=== PATIENT | female | born 1965 | race Caucasian/White ===

== ENCOUNTER 2016-09-19 10:18 | Emergency (ER) | payer SELFPAY ==
[2016-09-19] MEDS ORDERED: OXYCODONE-ACETAMINOPHEN 5-325 MG TABLET PO ONE (10:29)
[2016-09-19] MEDS ORDERED: ONDANSETRON 4 MG TAB.RAPDIS PO ONE (10:29)
--- NOTE | 2016-09-19 10:29 | ER Document Report ---
ED Medical Screen (RME) - General Stated Complaint: EAR PAIN Notes: 50 yo female c/o left ear pain and fatigue. Pt was diagnosed with mono 1 1/2 weeks ago. Syncopal episode this am, hit right side of head. + pain to head. + nausea. intermittant fever. TRAVEL OUTSIDE OF THE [place] IN LAST 30 DAYS: No - Related Data Allergies/Adverse Reactions: iodine [Iodine] Allergy (Severe, Verified 02/07/15 20:23) Difficulty breathing codeine [Codeine] Adverse Reaction (Mild, Verified 02/07/15 20:23) Nausea Past Medical History - Past Medical History Cardiac Medical History: Denies: Hx Coronary Artery Disease, Hx Heart Attack, Hx Hypertension Pulmonary Medical History: Denies: Hx Asthma, Hx Bronchitis, Hx COPD, Hx Pneumonia Neurological Medical History: Reports: Hx Migraine. Denies: Hx Cerebrovascular Accident, Hx Seizures GI Medical History: Reports: Hx Crohn's Disease - no meds, Hx Ulcer. Denies: Hx Hepatitis, Hx Hiatal Hernia Musculoskeltal Medical History: Reports Hx Arthritis Psychiatric Medical History: Reports: Hx Anxiety - xanax prn sleep Infectious Medical History: Denies: Hx Hepatitis Past Surgical History: Reports: Hx Appendectomy, Hx Breast Surgery - Lumpectomy , Hx Cholecystectomy, Hx Hysterectomy, Hx Tonsillectomy. Denies: Hx Mastectomy - RT BX DUCT REMOVED, Hx Open Heart Surgery, Hx Pacemaker - Immunizations Immunizations up to date: Yes Hx Diphtheria, Pertussis, Tetanus Vaccination: Yes Physical Exam - Vital signs Vitals: Temp Pulse Resp BP Pulse Ox 98.4 F 93 16 137/86 H 99 09/19/16 10:09/19/16 10:09/19/16 10:09/19/16 10:09/19/16 10:23 Course - Vital Signs Vital signs: Temp Pulse Resp BP Pulse Ox 98.4 F 93 16 137/86 H 99 09/19/16 10:09/19/16 10:09/19/16 10:23 09/19/16 10:23 09/19/16 10:23
[2016-09-19 11:17] LABS: ABSOLUTE BASOPHILS # (AUTO) 0.1 10^3/uL (0.0-0.2); ABSOLUTE EOSINOPHILS # (AUTO) 0.1 10^3/uL (0.0-0.6); ABSOLUTE LYMPHOCYTES (AUTO) 2.5 10^3/uL (0.5-4.7); ABSOLUTE MONOCYTES (AUTO) 0.5 10^3/uL (0.1-1.4); ABSOLUTE NEUT (AUTO) 6.3 10^3/uL (1.7-8.2); BASOPHILS % (AUTO) 0.6 % (0-2); EOSINOPHILS % (AUTO) 1.4 % (0-6); HEMATOCRIT 35.3 % (36.0-47.0); HEMOGLOBIN 12.3 g/dL (12.0-15.5); HGB HCT DIFFERENCE 1.6; LYMPHOCYTES % (AUTO) 26.4 % (13-45); MEAN CORPUSCULAR HEMOGLOBIN 34.6 pg (27.0-33.4); MEAN CORPUSCULAR HGB CONC 34.8 g/dL (32.0-36.0); MEAN CORPUSCULAR VOLUME 99 fl (80-97); MONOCYTES % (AUTO) 5.7 % (3-13); RED BLOOD COUNT 3.56 10^6/uL (3.72-5.28); RED CELL DISTRIBUTION WIDTH 13.8 % (11.5-14.0); SEGMENTED NEUTROPHILS % (AUTO) 65.9 % (42-78); WHITE BLOOD COUNT 9.6 10^3/uL (4.0-10.5)
[2016-09-19 11:37] LABS: APPEARANCE,URINE CLEAR; BILIRUBIN,URINE NEGATIVE (NEGATIVE); GLUCOSE, URINE NEGATIVE (NEGATIVE); KETONES,URINE NEGATIVE (NEGATIVE); LEUKOCYTE ESTERASE,URINE SMALL (NEGATIVE); NITRITE,URINE NEGATIVE (NEGATIVE); PROTEIN,URINE NEGATIVE (NEGATIVE); URINE SPECIFIC GRAVITY 1.015; UROBILINOGEN,URINE NEGATIVE mg/dL (<2.0)
[2016-09-19 11:41] LABS: ALANINE AMINOTRANSFERASE 29 U/L (9-52); ALBUMIN 4.5 g/dL (3.5-5.0); ALCOHOL < 10 mg/dL (NONE DETECTED); ALKALINE PHOSPHATASE 107 U/L (38-126); ANION GAP 12 (5-19); ASPARTATE AMINO TRANSFERASE 27 U/L (14-36); BILIRUBIN,TOTAL 0.4 mg/dL (0.2-1.3); BLOOD UREA NITROGEN 23 mg/dL (7-20); CALCIUM 9.9 mg/dL (8.4-10.2); CARBON DIOXIDE 26 mmol/L (22-30); CHLORIDE 105 mmol/L (98-107); CREATININE RESULT 0.88 mg/dL (0.52-1.25); GLUCOSE 100 mg/dL (75-110); POTASSIUM 4.5 mmol/L (3.6-5.0); SODIUM 142.9 mmol/L (137-145); TOTAL PROTEIN 7.4 g/dL (6.3-8.2)
[2016-09-19 11:49] LABS: URINE BARBITURATES SCREEN NEGATIVE; URINE METHADONE SCREEN NEGATIVE; URINE PHENCYCLIDINE SCREEN NEGATIVE
[2016-09-19 11:58] LABS: CREATINE KINASE MB 0.36 ng/mL (<4.55)
[2016-09-19 12:00] LABS: TROPONIN I < 0.012 ng/mL
--- NOTE | 2016-09-19 12:00 | ER Document Report ---
ED General - General Chief Complaint: Closed Head Injury Stated Complaint: EAR PAIN Notes: Patient says that she's been ill for the past week and a half or more. She's been very tired with no energy. Has had headache. Also sore throat. Was seen by her primary care provider and diagnosed as having mono. During this time, she has had bilateral ear pain, and about a week ago had some "stuff" coming out of her left ear, although it's not doing so at this time. Today, about 10 AM, patient was positioning herself on the toilet and the next thing she noticed was that she was laying on the floor and had a bruise on her right forehead. She has never had this happen before. She says that her equilibrium has been off for the past week. She's had about 3 episodes of vomiting during the past week or 2. Denies any abdominal pain, however. Denies any chest pains. Does not have any UTI symptoms. Has noted pain in the back of her neck since her fall and hitting her head this morning. Patient says she has not eaten anything but crackers for the past 2 days. Also felt that she's had a fever, going up to his high as 101.2 but back down to normal at other times. No one witnessed the patient's fall. PMH: Anxiety and takes Xanax as needed. History of appendectomy, hysterectomy, cholecystectomy, but no history of any heart disease. Not diabetic and not hypertensive. TRAVEL OUTSIDE OF THE [place] IN LAST 30 DAYS: No - Related Data Allergies/Adverse Reactions: iodine [Iodine] Allergy (Severe, Verified 09/19/16 10:29) Difficulty breathing codeine [Codeine] Adverse Reaction (Mild, Verified 09/19/16 10:29) Nausea Past Medical History - Social History Smoking Status: Current Every Day Smoker Cigarette use (# per day): Yes Family History: None, Reviewed & Not Pertinent Patient has suicidal ideation: No Patient has homicidal ideation: No - Past Medical History Cardiac Medical History: Denies: Hx Coronary Artery Disease, Hx Heart Attack Neurological Medical History: Reports: Hx Migraine. Denies: Hx Cerebrovascular Accident, Hx Seizures Endocrine Medical History: Denies: Hx Diabetes Mellitus Type 1, Hx Diabetes Mellitus Type 2 Renal/ Medical History: Denies: Hx Kidney Stones GI Medical History: Reports: Hx Crohn's Disease - no meds, Hx Ulcer Musculoskeltal Medical History: Reports Hx Arthritis Psychiatric Medical History: Reports: Hx Anxiety - xanax prn sleep Past Surgical History: Reports: Hx Appendectomy, Hx Breast Surgery - Lumpectomy , Hx Cholecystectomy, Hx Hysterectomy, Hx TonsillectomyComment Only: Hx Mastectomy - RT BX DUCT REMOVED - Immunizations Immunizations up to date: Yes Hx Diphtheria, Pertussis, Tetanus Vaccination: Yes Hx Pneumococcal Vaccination: 06/09/11 Review of Systems - Review of Systems Notes: REVIEW OF SYSTEMS: CONSTITUTIONAL : Has had intermittent fever. EENT: Denies eye, nose or mouth pain or other symptoms. See history of present illness regarding sore throat and ear pain. CARDIOVASCULAR: Denies chest pain. RESPIRATORY: Denies cough, chest congestion, or shortness of breath. GASTROINTESTINAL: Denies abdominal pain and no diarrhea, but has had nausea and has vomited about 3 times.. GENITOURINARY: Denies difficulty or painful urinating, urinary frequency, blood in urine. MUSCULOSKELETAL: Denies back pain. Has neck pain since her fall this morning. Denies joint pain or swelling. SKIN: Denies rash or skin lesions. Says her skin feels like she is been injured with total body pain, but no visible bruises. NEUROLOGICAL: See history of present illness. Denies altered mental status. Has generalized headache. Denies sensory loss or motor deficits. PSYCHIATRIC: Acknowledges history of anxiety and stress. ALL OTHER SYSTEMS REVIEWED AND NEGATIVE. Physical Exam - Vital signs Vitals: Temp Pulse Resp BP Pulse Ox 98.4 F 93 16 137/86 H 99 09/19/16 10:23 09/19/16 10:23 09/19/16 10:23 09/19/16 10:23 09/19/16 10:23 Interpretation: Normal - Notes Notes: PHYSICAL EXAMINATION: GENERAL: Well-appearing, in no acute distress. Ambulatory without difficulty. Vital signs are all normal. HEAD: Some very minor bruising and abrasion to the right upper forehead and right anterior scalp region, all of these areas tender to the touch. No scalp hematoma formation. The abrasions actually almost look as if they could be factitial, very shallow linear, from some sharp object, like a razor blade. No one witnessed the patient's fall. EYES: Pupils equal round and reactive to light, extraocular movements intact. ENT: oropharynx clear without exudates. Oral exam does not reveal any evidence of infection. Moist mucous membranes. Both TMs are visualized and are normal. There is no discharge or drainage from either ear. NECK: Normal range of motion, supple. Mild generalized tenderness around the neck, but no specific posterior midline tenderness. LUNGS: Breath sounds clear and equal bilaterally. No rib tenderness. HEART: Regular rate and rhythm without murmurs. ABDOMEN: Soft, nontender. No guarding or rebound. No tenderness in the left upper quadrant. BACK: No tenderness throughout entire back. EXTREMITIES: Normal range of motion without pain. NEUROLOGICAL: Normal speech, normal gait. Normal sensory, motor, and reflex exams. Awake, alert, and oriented x3. Cranial nerves normal. PSYCH: Normal mood, normal affect. SKIN: Warm, dry, no rashes. Course - Re-evaluation Re-evalutation: 09/19/16 13:43 Patient continued to complain of pain and saying that we hadn't given her anything sufficient, although she was given 2 Percocets in triage just 3 hours ago. I told the patient that she would need to get her pain medication prescriptions from her primary care provider, Dr. Alanis, but she said that she does not get pain medicines from him or anyone. Specifically, patient said that she had not gotten any pain medications from anyone in the past year and a half. I obtained the patient's prescription record for controlled substances from the [place] [employer] and it shows that she has gotten several prescriptions for 120 alprazolam 1 mg over the past few months. She's also received prescriptions for 60 oxycodone 10 mg on 08/13/2016. And, hydrocodone suspension 120 mL on 08/08/2016, and 40 oxycodone 10 mg on 07/19/2016, as well as other medications during several months prior to these. When I shared this information with the patient, she acknowledges that she had gotten these pain medicines, but said she misunderstood my question when she answered. I advised her that I would not be giving her any pain medications and she said Dr. Alanis wouldn't give her any either. I offered the patient a prescription for Ultram, but she declined, saying it never helps. Patient was given verbal discharge instructions and then I went to write up her discharge instructions. The nurse Dahiana informed me the patient had left the emergency department before receiving her written instructions. Dahiana had been witness to my entire conversation with the patient. - Vital Signs Vital signs: Temp Pulse Resp BP Pulse Ox 98.8 F 88 20 132/71 H 96 09/19/16 13:38 09/19/16 13:38 09/19/16 13:38 09/19/16 13:38 09/19/16 13:38 - Laboratory Result Diagrams: 09/19/16 10:58 09/19/16 10:58 Laboratory results interpreted by me: 09/19/16 09/19/16 09/19/16 10:58 10:58 10:58 RBC 3.56 L Hct 35.3 L MCV 99 H MCH 34.6 H BUN 23 H Ur Leukocyte Esterase SMALL H 09/19/16 13:42 Labs reviewed and BUN of 23 noted. No other significant abnormality present. - Diagnostic Test Radiology reviewed: Image reviewed, Reports reviewed Radiology results interpreted by me: 09/19/16 13:41 CT scan of the patient's brain and C-spine were both normal, without any acute abnormalities. - EKG Interpretation by Me EKG shows normal: Sinus rhythm - At 84 Rate: Normal Rhythm: NSR Discharge - Discharge Clinical Impression: Syncope Qualifiers: Syncope type: vasovagal syncope Qualified Code(s): R55 - Syncope and collapse Contusion of head Qualifiers: Encounter type: initial encounter Contusion of head detail: other part of head Qualified Code(s): S00.83XA - Contusion of other part of head, initial encounter Condition: Stable Disposition: HOME, SELF-CARE Additional Instructions: SYNCOPAL EPISODE: Syncope (fainting or near-fainting) can occur from many different health problems. Or it can be a simple fainting spell requiring no treatment. It is safe for you to go home, but further evaluation will likely be necessary. Your work-up may include tests for internal bleeding, heart disease, medication problems, or near-strokes. Tests are not always required, however, depending on the nature of your problem. The warning signs of an impending faint include: dizziness, lightheadedness , nausea, hot flashes, tingling, and weakness. If this happens, lay down and put your feet up, then wait until all of these symptoms have passed before standing up again. If these episodes become recurrent, or if you develop chest pain, heart palpitations, mental confusion, blurred vision, or headache, then you should call the physician, or go to the emergency room. NORMAL EXAM AND WORKUP: At this time, your examination and workup show no significant abnormality except for some abrasion and bruising of your right forehead. No other significant abnormal physical findings were noted. All laboratory, EKG, and imaging (x-ray, CT scans, ultrasound) studies that were ordered show no significant abnormality. Although your examination and all studies that were ordered showed no significant abnormal finding, there are no examinations and no studies that are 100% accurate. There is always the possibility that some abnormality could exist and not be detected with physical examination or within the limits and capabilities of laboratory and other studies. You should return or follow up as you were instructed on your visit today for further evaluation if your symptoms do not resolve. USE OF ACETAMINOPHEN (Tylenol): Acetaminophen may be taken for pain relief or fever control. It's much safer than aspirin, offering a wider range of "safe" dosages. It is safe during . Some brand names are Tylenol, Panadol, Datril, Anacin 3, Tempra, and Liquiprin. Acetaminophen can be repeated every four hours. The following are maximum recommended dosages: WEIGHT Dose Drops Elixir Chewable( 80mg) (LBS.) drprs=droppers tsp=teaspoon >89 pounds or adults 650 mg to 900 mg Acetaminophen can be repeated every four hours. Maximum dose not to exceed 4000 mg a day. These maximum recommended dosages are slightly higher than the dosages written on the product container, but these dosages are very safe and below the toxic dosage for acetaminophen. Ibuprofen Ibuprofen is an excellent, safe drug for pain control. In addition, it has potent antiinflammatory effects which are beneficial, especially in the treatment of injuries, arthritis, or tendonitis. It's best to take ibuprofen with food. Persons with ulcer disease or allergy to aspirin should notify their physician of this before taking ibuprofen. Take the medication exactly as prescribed. Don't take additional doses unless instructed to do so by your doctor. If you develop wheezing, shortness of breath, hives, faintness, stomach pain, vomiting, or dark black stools, return for re-evaluation at once. FOLLOW-UP CARE: If you have been referred to a physician for follow-up care, call the physician s office for an appointment as you were instructed or within the next two days. If you experience worsening or a significant change in your symptoms, notify the physician immediately or return to the Emergency Department at any time for re-evaluation. Follow-up with Dr. Alanis, your primary care provider, for other pain medications. Referrals: JARROD ALANIS MD [Primary Care Provider] - Follow up as needed
--- NOTE | 2016-09-19 13:37 | EKG REPORT ---
SEVERITY:- BORDERLINE ECG - SINUS RHYTHM SHORT TX INTERVAL, ACCELERATED AV CONDUCTION : Confirmed by: Cathy Barreto MD 19-Sep-2016 13:37:27
[2016-09-19 13:40] VITALS: BP 132/71
== END 2016-09-19 13:40 | disposition home or self-care (01) ==
LOC: ER 10:18
DX: S00.83XA Contusion of other part of head, initial encounter (principal); S00.03XA Contusion of scalp, initial encounter; M54.2 Cervicalgia; W18.11XA Fall from or off toilet without subsequent striking against object, initial encounter; R55 Syncope and collapse; B27.90 Infectious mononucleosis, unspecified without complication; R51 Headache; J02.9 Acute pharyngitis, unspecified; H92.03 Otalgia, bilateral; R11.10 Vomiting, unspecified; F41.9 Anxiety disorder, unspecified; Z88.3 Allergy status to other anti-infective agents; F17.210 Nicotine dependence, cigarettes, uncomplicated
CPT/HCPCS: 93005; 99284; 36415; 82553; 80307 ×2; 85025; 86308; 80053; 81001; 84484; 70450; 72125; 93010; S0119

== ENCOUNTER → 2016-10-09 | Outpatient (CLI) | payer SELFPAY ==
[2016-10-09 11:37] LABS: ABSOLUTE BASOPHILS # (AUTO) 0.2 10^3/uL (0.0-0.2); ABSOLUTE EOSINOPHILS # (AUTO) 0.3 10^3/uL (0.0-0.6); ABSOLUTE LYMPHOCYTES (AUTO) 3.1 10^3/uL (0.5-4.7); ABSOLUTE MONOCYTES (AUTO) 0.9 10^3/uL (0.1-1.4); ABSOLUTE NEUT (AUTO) 12.9 10^3/uL (1.7-8.2); BASOPHILS % (AUTO) 1.1 % (0-2); EOSINOPHILS % (AUTO) 1.7 % (0-6); HEMATOCRIT 39.9 % (36.0-47.0); HEMOGLOBIN 13.7 g/dL (12.0-15.5); HGB HCT DIFFERENCE 1.2; LYMPHOCYTES % (AUTO) 17.9 % (13-45); MEAN CORPUSCULAR HEMOGLOBIN 34.8 pg (27.0-33.4); MEAN CORPUSCULAR HGB CONC 34.2 g/dL (32.0-36.0); MEAN CORPUSCULAR VOLUME 102 fl (80-97); MONOCYTES % (AUTO) 4.9 % (3-13); RED BLOOD COUNT 3.93 10^6/uL (3.72-5.28); RED CELL DISTRIBUTION WIDTH 13.4 % (11.5-14.0); SEGMENTED NEUTROPHILS % (AUTO) 74.4 % (42-78); WHITE BLOOD COUNT 17.4 10^3/uL (4.0-10.5)
[2016-10-09 12:11] LABS: ALANINE AMINOTRANSFERASE 32 U/L (9-52); ALBUMIN 4.8 g/dL (3.5-5.0); ALKALINE PHOSPHATASE 119 U/L (38-126); ANION GAP 13 (5-19); ASPARTATE AMINO TRANSFERASE 20 U/L (14-36); BILIRUBIN,TOTAL 0.5 mg/dL (0.2-1.3); BLOOD UREA NITROGEN 21 mg/dL (7-20); CALCIUM 10.4 mg/dL (8.4-10.2); CARBON DIOXIDE 29 mmol/L (22-30); CHLORIDE 102 mmol/L (98-107); CREATININE RESULT 1.01 mg/dL (0.52-1.25); GLUCOSE 95 mg/dL (75-110); POTASSIUM 5.7 mmol/L (3.6-5.0); SODIUM 144.3 mmol/L (137-145); TOTAL PROTEIN 8.8 g/dL (6.3-8.2)
== END ==
LOC: LAB 10:55
PROVIDERS: ATTEND Obstetrics & Gynecology
DX: R10.12 Left upper quadrant pain (principal)
CPT/HCPCS: 36415; 80053; 85025

== ENCOUNTER → 2016-10-16 | Outpatient (CLI) | payer SELFPAY | LOC: RAD 08:07 | PROVIDERS: ATTEND Obstetrics & Gynecology | DX: D72.829 Elevated white blood cell count, unspecified (principal); R10.12 Left upper quadrant pain | CPT/HCPCS: 71020; 74176 ==

== ENCOUNTER → 2016-10-22 | Outpatient (CLI) | payer SELFPAY | LOC: WI 09:53 | PROVIDERS: ATTEND Obstetrics & Gynecology | DX: Z12.31 Encounter for screening mammogram for malignant neoplasm of breast (principal) | CPT/HCPCS: 77067; G0202 ==

== ENCOUNTER → 2016-10-22 | Outpatient (CLI) | payer SELFPAY ==
[2016-10-22 10:32] LABS: ABSOLUTE BASOPHILS # (AUTO) 0.1 10^3/uL (0.0-0.2); ABSOLUTE EOSINOPHILS # (AUTO) 0.4 10^3/uL (0.0-0.6); ABSOLUTE LYMPHOCYTES (AUTO) 3.2 10^3/uL (0.5-4.7); ABSOLUTE MONOCYTES (AUTO) 0.6 10^3/uL (0.1-1.4); ABSOLUTE NEUT (AUTO) 4.9 10^3/uL (1.7-8.2); BASOPHILS % (AUTO) 0.8 % (0-2); EOSINOPHILS % (AUTO) 4.3 % (0-6); HEMATOCRIT 33.8 % (36.0-47.0); HEMOGLOBIN 11.6 g/dL (12.0-15.5); MEAN CORPUSCULAR HEMOGLOBIN 34.7 pg (27.0-33.4); MEAN CORPUSCULAR HGB CONC 34.5 g/dL (32.0-36.0); MEAN CORPUSCULAR VOLUME 101 fl (80-97); MONOCYTES % (AUTO) 6.6 % (3-13); RED BLOOD COUNT 3.36 10^6/uL (3.72-5.28); RED CELL DISTRIBUTION WIDTH 13.3 % (11.5-14.0); SEGMENTED NEUTROPHILS % (AUTO) 53.3 % (42-78); WHITE BLOOD COUNT 9.2 10^3/uL (4.0-10.5)
[2016-10-22 10:57] LABS: ALANINE AMINOTRANSFERASE 24 U/L (9-52); ALBUMIN 4.6 g/dL (3.5-5.0); ALKALINE PHOSPHATASE 115 U/L (38-126); ANION GAP 11 (5-19); ASPARTATE AMINO TRANSFERASE 17 U/L (14-36); BILIRUBIN,TOTAL 0.4 mg/dL (0.2-1.3); BLOOD UREA NITROGEN 15 mg/dL (7-20); CALCIUM 9.5 mg/dL (8.4-10.2); CARBON DIOXIDE 28 mmol/L (22-30); CHLORIDE 104 mmol/L (98-107); CREATININE RESULT 0.75 mg/dL (0.52-1.25); GLUCOSE 86 mg/dL (75-110); POTASSIUM 4.3 mmol/L (3.6-5.0); SODIUM 142.7 mmol/L (137-145); TOTAL PROTEIN 7.7 g/dL (6.3-8.2)
== END ==
LOC: LAB 10:21
PROVIDERS: ATTEND Obstetrics & Gynecology
DX: E86.0 Dehydration (principal); D72.829 Elevated white blood cell count, unspecified
CPT/HCPCS: 36415; 80053; 85025